=== PATIENT | female | born 1960 | race Two or more races ===

== ENCOUNTER 2021-11-23 15:31 | Inpatient (IN) | payer OTHER ==
[~2021-11-23] VITALS: Ht 167.6 cm; Wt 83.9 kg
[2021-11-23] MEDS ORDERED: ATACAND HCT 321 EACH PO (15:43)
[2021-11-23] MEDS ORDERED: ZIAC 5-6.25 MG1 EACH PO (15:43)
[2021-11-25] MEDS ORDERED: BISOPROLOL FUMAR5 MG (10:30)
[2021-11-25] MEDS ORDERED: CLONAZEPAM0.5 MG (10:30)
[2021-11-25] MEDS ORDERED: ROSUVASTATIN CAL5 MG (10:31)
== END 2021-11-26 11:00 | disposition designated cancer center or children's hospital (05) | DRG 282 ==
LOC: ER 15:31 → ICU-2 20:51
PROVIDERS: ADMIT Internal Medicine; ATTEND Internal Medicine
PROC: B24BZZZ Ultrasonography of Heart with Aorta (ICD-10-PCS; principal; 2021-11-24)
PROC: BW24ZZZ Computerized Tomography (CT Scan) of Chest and Abdomen (ICD-10-PCS; 2021-11-24)
DX: I21.4 Non-ST elevation (NSTEMI) myocardial infarction (principal); R07.89 Other chest pain; R00.2 Palpitations; R06.02 Shortness of breath; I10 Essential (primary) hypertension; E78.49 Other hyperlipidemia; F17.210 Nicotine dependence, cigarettes, uncomplicated; Z20.822 Contact with and (suspected) exposure to COVID-19